=== PATIENT | male | born 1990 | race Caucasian/White ===

== ENCOUNTER 2017-11-13 19:39 | Emergency (ER) | payer OTHER ==
[~2017-11-13] VITALS: Wt 113.4 kg
[~2017-11-13 19:39] MED LIST: ALBUTEROL NEB; ALLERGY MED; AMOXICILLIN PO; AMOXICILLIN500 MG PO; ASMANEX220 MCG INH; AUGMENTIN 875875 MG PO; Anusol Hc,Anuco25 MG PO; BACTRIM DS 8001 TA1 PO; BACTRIM DS 8001 TAB PO; BROMFED DM PO; CHLORASEPTIC PO; CLARITIN REDITA10 MG PO; CLARITIN-D 12 H1 TAB PO; CLARITIN10 MG PO; CLINDAMYCIN HC300 MG PO; DOLOBID500 MG PO; DOXYCYCLINE HY100 M3 PO; DUONEB 3 MG/3 ML3 M1 INH; FLONASE ALLERG9.9 ML NS; FLONASE NAS; GEODON60 MG PO; GOOD SENSE ALLE10 MG PO; INHALER; KEFLEX500 MG PO; MEDROL DOSEPAK4 MG PO; MOTRIN800 MG PO; MULTIVITAMIN + IRON PO; NAPROSYN500 MG PO; NORCO 325 MG-51 TAB PO; OMNICEF300 MG PO; PARAFON FORTE500 MG PO; PREDNICOT20 MG PO; PREVACID30 M1 PO; PROAIR HFA0.09 MG/AC INH; PROAIR HFA8.5 GM INH; ROBITUSSIN DM 105 ML PO; RONDEC DM 480480 ML PO; SUDAFED PE PRES PO; TOBREX OPHTH S2.5 ML OPH; VALIUM10 MG PO; VITAMINS & MINE1 TAB PO; ZITHROMAX Z PA250 MG PO; ZITHROMAX250 MG PO; ZOFRAN ODT4 MG SL; ZOFRAN4 MG PO; ZYRTEC10 MG PO; Zofran4 MG PO; [UNRECOGNIZED DRUG - OTHER]; [UNRECOGNIZED DRUG - OTHER] T
[2017-11-13 19:42] VITALS: BP 127/86
[2017-11-13] MEDS ORDERED: TAMIFLU 75MG CA75 MG PO (20:25)
== END 2017-11-13 22:42 | disposition home or self-care (01) ==
LOC: ED 19:39
DX: J10.1 Influenza due to other identified influenza virus with other respiratory manifestations (principal); Z91.010 Allergy to peanuts

== ENCOUNTER 2017-11-25 23:08 | Emergency (ER) | payer OTHER ==
[~2017-11-25] VITALS: Ht 182.8 cm; Wt 113.4 kg
[~2017-11-25 23:08] MED LIST changes: +TAMIFLU 75MG CA75 MG PO
[2017-11-26] MEDS ORDERED: NEIGHBOR P PO (00:19)
[2017-11-26] MEDS ORDERED: AMOXICILLIN500 M2 PO (00:19)
[2017-11-26 01:40] VITALS: BP 132/90
== END 2017-11-26 01:49 | disposition home or self-care (01) ==
LOC: ED 23:08
DX: H65.01 Acute serous otitis media, right ear (principal); J01.00 Acute maxillary sinusitis, unspecified; Z91.018 Allergy to other foods

== ENCOUNTER 2018-11-04 00:10 | Emergency (ER) | payer OTHER ==
[~2018-11-04] VITALS: Ht 182.8 cm; Wt 90.7 kg
[~2018-11-04 00:10] MED LIST changes: +AMOXICILLIN500 M2 PO; +CEFADROXIL500 M1 PO; +CEPHALEXIN500 M1 PO; +INDOMETHACIN50 MG PO; +Motrin,Rufen800 MG PO; +NEIGHBOR P PO; +SEPTDS PO
[2018-11-04 00:14] VITALS: BP 140/94
[2018-11-04] MEDS ORDERED: Motrin,Rufen800 MG PO (01:34)
== END 2018-11-04 01:31 | disposition home or self-care (01) ==
LOC: ED
DX: S02.2XXA Fracture of nasal bones, initial encounter for closed fracture (principal); S01.111A Laceration without foreign body of right eyelid and periocular area, initial encounter; J45.909 Unspecified asthma, uncomplicated; M54.2 Cervicalgia; F17.200 Nicotine dependence, unspecified, uncomplicated; Z91.018 Allergy to other foods; Y08.89XA Assault by other specified means, initial encounter; Y93.89 Activity, other specified; Y92.89 Other specified places as the place of occurrence of the external cause; Y99.8 Other external cause status

== ENCOUNTER 2019-09-19 00:52 | Emergency (ER) | payer OTHER ==
[~2019-09-19] VITALS: Ht 182.8 cm; Wt 113.4 kg
[~2019-09-19 00:52] MED LIST changes: +AUGMENTIN 875-875 MG PO; +FLONASE ALLERG9.9 ML NAS
[2019-09-19 00:53] VITALS: BP 134/66
[2019-09-19] MEDS ORDERED: Motrin,Rufen800 MG PO ×2 (01:15→01:18)
[2019-09-19] MEDS ORDERED: AMOXICILLIN500 M2 PO ×2 (01:15→01:18)
[2019-09-19] MEDS ORDERED: FLONASE ALLERG9.9 ML NAS ×2 (01:15→01:18)
[2019-09-19] MEDS ORDERED: PSEUDOPHEDRINE30 MG PO (01:16)
== END 2019-09-19 01:38 | disposition home or self-care (01) ==
LOC: ED 00:52
DX: J01.00 Acute maxillary sinusitis, unspecified (principal); J45.909 Unspecified asthma, uncomplicated; Z91.048 Other nonmedicinal substance allergy status; Z91.010 Allergy to peanuts; Z79.2 Long term (current) use of antibiotics; Z79.899 Other long term (current) drug therapy

== ENCOUNTER 2020-07-11 19:21 | Emergency (ER) | payer OTHER ==
[~2020-07-11] VITALS: Ht 182.8 cm; Wt 113.4 kg
[~2020-07-11 19:21] MED LIST changes: +PSEUDOPHEDRINE30 MG PO
[2020-07-11 20:35] VITALS: BP 156/102
== END 2020-07-11 22:36 | disposition home or self-care (01) ==
LOC: ED 19:21
DX: M25.461 Effusion, right knee (principal); J45.909 Unspecified asthma, uncomplicated; F31.9 Bipolar disorder, unspecified; Z91.010 Allergy to peanuts; Z79.899 Other long term (current) drug therapy

== ENCOUNTER → 2021-03-13 | Outpatient (CLI) | payer OTHER ==
[2021-03-13 15:18] LABS: HEMATOCRIT 42.3 % (42.0-52.0); MEAN CELL VOLUME 86.3 fl (80.0-94.0); MEAN CORPUSCULAR HGB 29.8 pg (27.0-31.0); MEAN CORPUSCULAR HGB CONC 34.5 g/dl (33.0-37.0); MEAN PLATELET VOLUME 10.4 fl (9.6-12.3); RED BLOOD COUNT 4.9 10*6/uL (4.50-5.90); RED CELL DISTRI WIDTH 12.7 % (0-14.5); WHITE BLOOD COUNT 10.6 10*3/uL (4.8-10.8)
[2021-03-13 15:50] LABS: ALBUMIN 3.9 gm/dl (3.1-4.5); ALKALINE PHOSPHATASE 90 U/L (45-117); BUN 16 mg/dl (7-24); CHLORIDE 105 mmol/L (98-107); CHOLESTEROL 121 mg/dL (<200); CREATININE 0.82 mg/dL (0.70-1.30); LDL CHOLESTEROL 64 mg/dL (9-159); POTASSIUM 3.5 mmol/L (3.5-5.1); SGOT/AST 31 IU/L (3-35); SGPT/ALT 48 U/L (12-78); SODIUM 138 mmol/L (136-145); TOTAL PROTEIN 8.3 gm/dL (6.4-8.2); TRIGLYCERIDES 66 mg/dl (<150)
[2021-03-18 01:05] LABS: ALTERNARIA ALTERNATA, IGE <0.10 kU/L (Class 0); AMERICAN ELM, IGE <0.10 kU/L (Class 0); ASPERGILLUS FUMIGATU, IGE <0.10 kU/L (Class 0); BERMUDA GRASS, IGE 0.73 kU/L (Class II); BIRCH, COMMON SILVER IGE 0.32 kU/L (Class I); CLADOSPORIUM HERBARU, IGE <0.10 kU/L (Class 0); D FARINAE MITE 3.35 kU/L (Class III); D PTERONYSSINUS 4.01 kU/L (Class IV); DOG DANDER, IGE 0.25 kU/L (Class 0/I); IMMUNOGLOBULIN IgE 82 IU/mL (6-495); MAPLE LEAF SYCAMORE, IGE <0.10 kU/L (Class 0); MAPLE/BOX ELDER, IGE 0.12 kU/L (Class 0/I); MOUSE URINE IGE 0.93 kU/L (Class II); PENICILLIUM CHRYSOGENUM, IGE <0.10 kU/L (Class 0); ROUGH PIGWEED, IGE <0.10 kU/L (Class 0); SHEEP SORREL (DOCK), IGE <0.10 kU/L (Class 0); SHORT RAGWEED, IGE 2.18 kU/L (Class III); TIMOTHY, IGE 4.57 kU/L (Class IV); WALNUT TREE, IGE 0.13 kU/L (Class 0/I); WHITE ASH, IGE <0.10 kU/L (Class 0); WHITE MULBERRY, IGE <0.10 kU/L (Class 0); WHITE OAK, IGE <0.10 kU/L (Class 0)
[2021-03-18 23:06] LABS: CORN, IGE <0.10 kU/L (Class 0); MILK (COW), IGE <0.10 kU/L (Class 0); PEANUT, IGE <0.10 kU/L (Class 0); SOYBEAN, IGE <0.10 kU/L (Class 0); WHEAT, IGE <0.10 kU/L (Class 0)
== END | disposition home or self-care (01) ==
LOC: LAB 14:35
PROVIDERS: ATTEND Nurse Practitioner Family
DX: Z13.220 Encounter for screening for lipoid disorders (principal); Z79.899 Other long term (current) drug therapy; R53.83 Other fatigue; R09.81 Nasal congestion; J30.89 Other allergic rhinitis

== ENCOUNTER 2021-09-09 18:17 | Emergency (ER) | payer OTHER ==
[~2021-09-09] VITALS: Ht 182.8 cm; Wt 131.5 kg
[2021-09-09 18:28] VITALS: BP 124/70
== END 2021-09-09 19:02 | disposition home or self-care (01) ==
LOC: ED 18:17
DX: S05.01XA Injury of conjunctiva and corneal abrasion without foreign body, right eye, initial encounter (principal); W22.8XXA Striking against or struck by other objects, initial encounter; Y93.89 Activity, other specified; Y92.89 Other specified places as the place of occurrence of the external cause; Y99.8 Other external cause status

== ENCOUNTER 2024-11-13 19:52 | Emergency (ER) | payer OTHER ==
[~2024-11-13] VITALS: Ht 182.8 cm; Wt 120.2 kg
[2024-11-13 20:18] VITALS: BP 147/86
[2024-11-13] MEDS ORDERED: AMOX-CLAV 875-1 EACH PO (20:29)
[2024-11-13] MEDS ORDERED: Amoxicillin/Clavulanate Pota 875 MG TAB PO ONE ×3 (20:30)
== END 2024-11-13 20:38 | disposition home or self-care (01) ==
LOC: ED 19:52
DX: J02.0 Streptococcal pharyngitis (principal); Z91.048 Other nonmedicinal substance allergy status; Z91.010 Allergy to peanuts; Z79.899 Other long term (current) drug therapy

== ENCOUNTER → 2024-11-24 | Outpatient (CLI) | payer OTHER ==
[~2024-11-24] MED LIST changes: +AMOX-CLAV 875-1 EACH PO
== END | disposition home or self-care (01) ==
LOC: US 11-22 08:30
PROVIDERS: ATTEND Family Medicine
DX: K76.0 Fatty (change of) liver, not elsewhere classified (principal); R74.01 Elevation of levels of liver transaminase levels

== ENCOUNTER 2025-02-13 08:51 | Emergency (ER) | payer OTHER ==
[~2025-02-13] VITALS: Ht 182.8 cm; Wt 117.9 kg
[2025-02-13 09:10] VITALS: BP 143/92
[2025-02-13] MEDS ORDERED: CIPROFLOXACIN HC5 ML OPH (09:16)
== END 2025-02-13 09:33 | disposition home or self-care (01) ==
LOC: ED 08:51
DX: H10.9 Unspecified conjunctivitis (principal); Z91.048 Other nonmedicinal substance allergy status; Z91.010 Allergy to peanuts; Z79.899 Other long term (current) drug therapy

== ENCOUNTER → 2025-03-18 | Outpatient (CLI) | payer OTHER ==
[~2025-03-18] MED LIST changes: +CIPROFLOXACIN HC5 ML OPH
[2025-03-18 10:35] LABS: HEMATOCRIT 46.2 % (42.0-52.0); MEAN CELL VOLUME 85.1 fl (80.0-94.0); MEAN CORPUSCULAR HGB 29.1 pg (27.0-31.0); MEAN CORPUSCULAR HGB CONC 34.2 g/dl (33.0-37.0); MEAN PLATELET VOLUME 9.6 fl (9.6-12.3); RED BLOOD COUNT 5.43 10*6/uL (4.50-5.90); RED CELL DISTRI WIDTH 12.9 % (0-14.5); WHITE BLOOD COUNT 7.3 10*3/uL (4.8-10.8)
[2025-03-18 11:13] LABS: ALKALINE PHOSPHATASE 80 U/L (46-116); BUN 13 mg/dl (9-23); CHLORIDE 102 mmol/L (98-107); CHOLESTEROL 118 mg/dL (<200); LDL CHOLESTEROL 65 mg/dL (9-159); SGPT/ALT 56 U/L (5-49); TOTAL PROTEIN 7.9 gm/dL (6.0-8.0); TRIGLYCERIDES 59 mg/dl (<150)
== END | disposition home or self-care (01) ==
LOC: LAB 10:05
PROVIDERS: ATTEND Nurse Practitioner Family
DX: K75.81 Nonalcoholic steatohepatitis (NASH) (principal)